=== PATIENT | male | born 1990 | race Two or more races ===

== ENCOUNTER 2019-08-05 12:29 | Emergency (ER) | payer SELFPAY ==
[~2019-08-05] VITALS: Ht 170.2 cm; Wt 77.1 kg
[2019-08-05 12:59] VITALS: BP 160/84
[2019-08-05] MEDS ORDERED: METOCLOPRAMIDE HCL 5MG/ml INJ 2ml VIAL IV ONE (15:30)
[2019-08-05] MEDS ORDERED: KETOROLAC TROMETH 15 mg/ml 1ML VL IV ONE (15:30)
[2019-08-05] MEDS ORDERED: SODIUM CHLORIDE 0.9% 1,000 ML IV ONE (15:45)
[2019-08-05] MEDS ORDERED: diphenhdrAMINE HCL 50 MG/1 ML VL IV ONE (15:45)
== END 2019-08-05 16:49 | disposition home or self-care (01) ==
LOC: EDBD 12:29 → ER 12:29
DX: F41.9 Anxiety disorder, unspecified (principal); R11.2 Nausea with vomiting, unspecified
CPT/HCPCS: 71046; 93005; 96361; 96374; 96375; 99284; J1200; J1885; J2765; J7030

== ENCOUNTER 2023-03-13 00:56 | Emergency (ER) | payer SELFPAY ==
[~2023-03-13] VITALS: Ht 167.6 cm; Wt 75.8 kg
[2023-03-13 01:35] VITALS: PULSE 89; RESP 19; O2SAT 95
[2023-03-13 03:30] VITALS: BP 129/77; PULSE 94; RESP 20; TEMP 98.7; O2SAT 96
== END 2023-03-13 04:15 | disposition home or self-care (01) ==
LOC: ER 00:56
DX: S00.83XA Contusion of other part of head, initial encounter (principal); M54.2 Cervicalgia; F10.129 Alcohol abuse with intoxication, unspecified; V89.2XXA Person injured in unspecified motor-vehicle accident, traffic, initial encounter; Y93.39 Activity, other involving climbing, rappelling and jumping off; Y92.89 Other specified places as the place of occurrence of the external cause; Y99.8 Other external cause status; Y90.0 Blood alcohol level of less than 20 mg/100 ml
CPT/HCPCS: 70450; 70486; 72125